=== PATIENT | female | born 1995 ===

== ENCOUNTER 2017-12-10 15:34 | Inpatient (IN) | payer MEDICAID, OTHER ==
--- NOTE | 2017-12-10 18:14 | PCM.BM ---
Treatment Plan Problems - Problems identified on initial assessmt HOPELESSNESS/HELPLESSNESS Date Initiated: 12/10/17 Time Initiated: 18:13 Assessment reference: NA Status: Active Treatment assets and liabiliti Patient Assests: adapts well, cooperative, motivated, resourceful, self-reliant, ADL independent, physically healthy Patient Liabilities: financial problems, poor support system, relationship conflicts (PT IS 28 WEEKS ) - Milieu Protocol Maintain good personal hygiene: daily Encourage regular showers, daily Remind patient to perform daily oral care, daily Assist patient to perform ADL's Conduct patient checks and document Observation sheet: Q15 minutes Maintain personal safety: every shift Educate patient to report safety concerns to staff, every shift Monitor environment for contraband/sharps Medication safety: Monitor for expected outcome, potential side effects: every shift, Assess barriers to learning: every shift, Assess readiness for medication education: every shift
[2017-12-11 09:54] LABS: T4 11.6 ug/dl (5.5-11.0)
[2017-12-11 10:08] LABS: T3 1.39 nmol/L (1.49-2.60)
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
[2017-12-11] MEDS: Prenatal Multivit/Folic Acid/Iron Tab PO SCH (17:38)
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
[2017-12-12] MEDS: Prenatal Multivit/Folic Acid/Iron Tab PO SCH (08:48)
[2017-12-13] MEDS: Prenatal Multivit/Folic Acid/Iron Tab PO SCH (09:57)
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
--- NOTE | 2017-12-14 08:53 | PCM.PYCHPN ---
Psychiatric Progress Note - Psychiatric Progress Note Patient seen today, length of contact: chart reviewed case discussed with team Patient Chief Complaint: pt is lesss depressed and is less anxious and denies suicidal deation Medication Change: No Medical Record Reviewed: Yes Mental Status Examination - Cognitive Function Orientation: Person, Place, Situation, Time Memory: Intact Attention: WNL Concentration: WNL Association: WN Fund of Knowledge: WNL - Mood Mood: Neutral - Affect Affect: Broad, Depressed - Speech Speech: Soft - Formal Thought Process Formal Thought Process: No Impairment - Suicidal Ideation Suicidal Ideation: No - Homicidal Ideation Homicidal Ideation: No Goal/Treatment Plan - Goal/Treatment Plan Progress Toward Problem(s) and Goals/Treatment Plan: continue to engage pt in therapy and groups. d/c planning when stable.
[2017-12-14] MEDS: Prenatal Multivit/Folic Acid/Iron Tab PO SCH (09:23)
[2017-12-15] MEDS: Prenatal Multivit/Folic Acid/Iron Tab PO SCH (09:00)
[2017-12-15 18:21] VITALS: O2SAT 18
[2017-12-16 09:49] VITALS: RESP 18
[2017-12-16] MEDS: Prenatal Multivit/Folic Acid/Iron Tab PO SCH (10:29)
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
[2017-12-17] MEDS: Prenatal Multivit/Folic Acid/Iron Tab PO SCH (08:52)
[2017-12-17] MEDS ORDERED: Prenatal Multivit/Folic Acid/Iron Tab PO SCH (09:00)
[2017-12-17 09:06] VITALS: BP 119/74; PULSE 84; TEMP 96.9
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
== END 2017-12-17 15:20 | disposition home or self-care (01) | DRG 882 ==
LOC: H.ER 15:34 → H.PSYCH 15:47
PROVIDERS: ADMIT Psychiatry & Neurology Psychiatry; ATTEND Psychiatry & Neurology Psychiatry
PROC: GZHZZZZ Group Psychotherapy (ICD-10-PCS; principal; 2017-12-10)
PROC: GZ58ZZZ Individual Psychotherapy, Cognitive-Behavioral (ICD-10-PCS; 2017-12-10)
DX: F43.23 Adjustment disorder with mixed anxiety and depressed mood (principal); F43.10 Post-traumatic stress disorder, unspecified; O99.343 Other mental disorders complicating pregnancy, third trimester; Z3A.28 28 weeks gestation of pregnancy; Z91.410 Personal history of adult physical and sexual abuse; Z91.5 Personal history of self-harm; Z91.013 Allergy to seafood